=== PATIENT | female | born 1990 | race Caucasian/White ===

== ENCOUNTER 2024-07-23 15:45 | Outpatient (RCR) | payer OTHER, SELFPAY ==
--- NOTE | 2024-06-14 17:34 | OPREHPOC ---
Outpatient Therapy Plan of Care This is a Multidisciplinary Plan of Care that may contain components documented by all disciplines (PT, OT, and ST.) PT Problem 1 PT Problem #1 Knowledge Deficit PT Goal 1 Goal / Goal Update Pine with HEP Target Visit 4 PT Goal 2 Goal / Goal Update Report 2 weeks consistency with 0/10 cervical pain with ADLs Target Visit 8 PT Problem 2 PT Problem #2 Impaired Range of Motion PT Goal 1 Goal / Goal Update 1. Demonstrate 75 degrees of tiffany cervical rotation ROM 2. Improve cervical flexion ROM to 45 degrees Target Visit 8 PT Problem 3 PT Problem #3 Impaired Strength PT Goal 1 Goal / Goal Update 1. Improve tiffany middle trap strength to 4+/5 to improve scapular stability 2. Improve tiffany lower trap strength to 4+/5 to improve scapular stability Target Visit 8 PT Goal 2 Goal / Goal Update Improve R external rotation strength to 4+/5 to improve shoulder stability with ADLs Target Visit 8
--- NOTE | 2024-06-14 17:34 | PTOPEVAL1 ---
Assessment and note entered by Michael Guevara, PT Evaluation Information Assessment Status Evaluation ICD-10 Condition Codes (PT) Cervicalgia M54.2,M25.511,M25.512 Onset 2+ years Subjective Information Reports that she has cervical pain with tension in bilateral shoulders. Pain is mostly in shoulder but at times with radiate down to her elbow on her right side. She is right handed. She is able to sleep but wakes up with a headache. She sleeps in position on her left side. She is unable to sleep on her right side with pillow between knees. She has started to have migraines morph into tension headaches. 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 Reported Pain Level Pain Score 1: Self Report Assessment PT Clinical Summary Patient presents with signs and symptoms of postural cervical strain and shoulder girdle weakness contributing to chronic cervical strain with ADLs. Patient has notable weakness in tiffany periscapular and right shoulder rotator cuff creating instability. Patient will benefit form skilled therapy to address these deficits for improved postural strength and stabilization to reduce chronic tension and headaches. Plan of Care Interventions Electrical Stimulation,Hot Pack/Cold Pack,Manual Therapy,Neuro Re-education,Therapeutic Activities, Therapeutic Exercise PT Services Indicated Yes Treatment Frequency and 2/week for 8 visits Duration These treatments will address the objective and functional deficits as defined above. The patient will be advanced safely and appropriately in order for the patient to progress towards his/her prior level of function. Additional exercises will be introduced and as well as a comprehensive home exercise program upon discharge, if needed, ?to ensure carryover of functional gains achieved in the clinic. This treatment plan has been reviewed and agreement upon by the patient.
--- NOTE | 2024-07-27 10:06 | PCPTNOTE ---
07/16/24 Addendum to SOAP note: Pt assessement: Pt tolerated session well with increased mobilitiy and less pain following session. Pt presented with significant tightness through out cervical region L > R and in to UT and levator.
--- NOTE | 2024-07-27 14:58 | PCPTNOTE ---
07-26-24 reeval appt was canceled due to weather/snow.
== END 2024-09-12 23:59 | disposition home or self-care (01) ==
LOC: ANHPT 15:45
PROVIDERS: PCP Physician Assistant Medical; Visit Provider Nurse Practitioner Family
DX: M54.2 Cervicalgia (principal); M25.519 Pain in unspecified shoulder
CPT/HCPCS: 97110; 97140; 97161